=== PATIENT | male | born 1995 | race Caucasian/White ===

== ENCOUNTER 2021-10-27 09:40 | Emergency (ER) | payer OTHER ==
[2021-10-27] MEDS ORDERED: IBUPROFEN 600 MG TABLET (FP) PO ONE (09:52)
[2021-10-27 10:12] VITALS: BP 149/82; PULSE 98; TEMP 99; BMI 27.0
== END 2021-10-27 10:57 | disposition home or self-care (01) ==
LOC: FER 09:40
DX: S99.912A Unspecified injury of left ankle, initial encounter (principal); Y93.73 Activity, racquet and hand sports
CPT/HCPCS: 73610-TC-LT-FY; 73630-TC-LT; 99283-25